=== PATIENT | male | born 1960 | race Two or more races ===

== ENCOUNTER 2024-10-19 22:31 | Emergency (ER) | payer MEDICARE, SELFPAY ==
[2024-10-19 22:34] VITALS: BMI 31.9
[2024-10-19 22:58] VITALS: BP 146/78; PULSE 68; RESP 18; TEMP 36.9; O2SAT 99
[2024-10-19] MEDS: DEXAMETHASONE SOD PHOS INJ 10 MG/ML VIAL PO (23:16)
--- NOTE | 2024-10-20 00:50 | PD.EDALLER ---
ED Allergic Reaction RME/HPI General Chief complaint: Allergic Reaction Stated complaint: FACIAL SWELLING Time Seen by Provider: 10/19/24 23:11 Arrival date/time: 10/19/24 22:31 64M with history of HTN presents to ED with 1 day of facial swelling. Patient denies new foods, meds, and hygiene products, as well as rash or itching. Patient does take lisinopril. Patent also denies SOB and throat swelling. Limitations: no limitations Related Data Home Medications ?Medication ?Instructions ?Recorded ?Confirmed pantoprazole 40 mg tablet,delayed 40 mg PO QDAY 06/13/19 10/24/19 release Previous Rx's ?Medication ?Instructions ?Recorded docusate sodium 100 mg capsule 100 mg PO QDAY #30 caps 10/26/19 hydrocodone 10 mg-acetaminophen 1 tab PO Q6HR PRN MODERATE PAIN 10/26/19 325 mg tablet 4-6 #40 tabs rivaroxaban 10 mg tablet (Xarelto) 10 mg PO Q24H #12 tabs 10/26/19 prednisone 50 mg tablet 50 mg PO QDAY 5 days #5 tabs 10/20/24 Allergies Allergy/AdvReac Type Severity Reaction Status Date / Time No Known Allergies Allergy Verified 10/19/24 22:33 Review of Systems Review of Systems Systems Reviewed: All systems reviewed, normal except as documented Constitutional Constitutional: Reports system reviewed and no additional complaints, except as documented, Denies fever(s) and Denies headache(s) ENT Ears, Nose, Mouth, and Throat: Denies disequilibrium and Denies headache(s) Cardiovascular Cardiovascular: Reports system reviewed and no additional complaints, except as documented, Denies chest pain and Denies dyspnea Respiratory Respiratory: Reports system reviewed and no additional complaints, except as documented, Denies cough and Denies dyspnea Gastrointestinal Gastrointestinal: Reports system reviewed and no additional complaints, except as documented, Denies abdominal pain, Denies nausea and Denies vomiting Integumentary/Breasts Skin/Breast: Reports as per HPI and Reports skin swelling Neurologic Neurologic: Reports system reviewed and no additional complaints, except as documented, Denies confusion, Denies disequilibrium and Denies headache(s) Psychiatric Psychiatric: Denies confusion Past Medical History Past Medical History NEUROLOGIC: Negative Neurological Disorders or Seizures CARDIAC: Positive Cardiac Disorders and Hypertension (no meds); Negative Congestive Heart Failure RESPIRATORY: Negative Chronic Obstructive Pulmonary Disease (COPD), Pulmonary Fibrosis, Tuberculosis, Pulmonary Embolism or Sleep Apnea GASTROINTESTINAL: Positive Gastrointestinal Disorders, Ulcer and Gastroesophageal Reflux Disease; Negative Hepatitis GENITOURINARY: Negative Genitourinary Disorders or Renal Disease REPRODUCTIVE: Negative Testicular Cancer MUSCULOSKELETAL: Positive Musculoskeletal Disorders and Arthritis ENDOCRINE: Negative Endocrine Disorders, Diabetes Mellitus Type 1 or Diabetes Mellitus Type 2 HEMATOLOGIC: Negative Blood Disorders OTHER HISTORY: Positive Chicken Pox (child), Measles (child) and Mumps (child); Negative Hospitalization (may 2019), Autoimmune Disease, Falls, Blood Transfusions, Blood Transfusion Reaction, Anesthesia Reactions, Organ Transplant, Chemotherapy, Radiation Therapy, Hyperbaric Therapy, MRSA, Cancer or Testicular Cancer Family History FAMILY HISTORY: Negative Family Psychiatric Problems, Family Respiratory Disorders, Family Cardiac Disorders, Family Gastrointestinal Problems, Family Cancer, Family Surgery or Family Anesthesia Reaction Surgical History SURGICAL: Negative Cardiac Surgery, Open Heart Surgery, Coronary Artery Bypass Graft, Valve Replacement, Vascular Surgery, Coronary Stent, Cardiac Catheterization, Pacemaker, Angiogram, Auto Implanted Cardiovert Defib, Carotid Endarterectomy, Endocrine Surgery, Thyroidectomy, Ear Surgery, Tympanostomy Tube, Nephrectomy, Transurethral Resection, Joint Replacement, Neurologic Surgery, Brain Shunt, Mastectomy, Lumpectomy, Hysterectomy, Tubal Ligation, Section, Vasectomy or Organ Transplant Social History SMOKING STATUS: Never smoker ED Exam General Limitations: Present no limitations General appearance: Present alert and in no apparent distress Head Head exam: Present atraumatic Eye Eye exam: Present normal appearance, PERRL and EOMI ENT ENT exam: Present normal exam, normal oropharynx and mucous membranes moist Neck Neck exam: Present normal inspection, full ROM and trachea midline Chest Chest inspection: Present normal inspection and symmetric chest wall rise Respiratory Respiratory exam: Present normal lung sounds bilaterally Cardiovascular Cardiovascular exam: Present regular rate, normal rhythm and normal heart sounds Abdominal Exam Abdominal exam: Present soft and normal bowel sounds Extremities Exam Extremities exam: Present normal inspection and full ROM Back Exam Back exam: Present normal inspection and full ROM Neurological Exam Neurological exam: Present alert, oriented X3 and CN II-XII intact Psychiatric Psychiatric exam: Present normal affect and normal mood Skin Skin exam: Present warm, dry, intact and normal color Course Quality Measures none Orders Category Date Time Status Dexamethasone Inj [Decadron Inj] Med 10/19/24 23:12 Discontinued 10 mg PO X1 ONE Vital Signs Vital signs: Vital Signs Temperature 98.5 F 10/19/24 22:58 Pulse Rate 68 10/19/24 22:58 Respiratory Rate 18 10/19/24 22:58 Blood Pressure 146/78 H 10/19/24 22:58 Pulse Oximetry (%) 99 10/19/24 22:58 Oxygen Delivery Method Room Air 10/19/24 22:58 O2 at 99% on RA and WNLs Allergic Reaction MDM Narrative MDM Narrative:: 64M with history of HTN presents to ED with 1 day of facial swelling. Patient denies new foods, meds, and hygiene products, as well as rash or itching. Patient does take lisinopril. Patent also denies SOB and throat swelling. Physical exam reveals facial swelling, more around lower face than upper/eye area, but no rash. ENT and lungs clear. Patient is afebrile, calm, and alert. Noticeable improvement with steroids, suggesting more allergic reaction etiology rather than DEEPA-inhibitor angioedema, which does not respond to antihistamines. Patient data External records reviewed:: [facility] previous records Clinical information provided by:: patient Social determinants that could affect healthcare access:: none Patient has the following chronic illnesses:: HTN How is presenting disease/condition affected by chronic disease/condition?: exacerbated by Evaluation data The following diagnostics were reviewed and interpreted by me:: other (specify) (none) Lab and/or radiology exams considered but not ordered:: not ordered Interpretation Summary: n/a Medications / Prescriptions Medications or Prescriptions considered but not ordered:: ordered Medication administrations:: Medication Administration History Discontinued Medications Dexamethasone Sodium Phosphate (Dexamethasone Sod Phos Inj 10 Mg/Ml Vial) 10 mg PO X1 ONE Stop: 10/19/24 23:13 Last Admin: 10/19/24 23:16 Dose: 10 mg Documented By: OA above Consultations Consultation(s) initiated? (list below): No Diagnosis Differential Diagnosis allergic reaction: anaphylaxis, allergic reaction, angioedema, contact dermatitis, adverse reaction to drug, viral enanthem and urticaria Most likely diagnosis given after review of the tests above:: allergic reaction Admission Indicated Admission indicated?: not indicated Admission Request Was there a request for admission?: No Disposition Plan Disposition Plan: Discharge Discharge Attestation Discharge Attestation: The patient and all family members were given an opportunity to ask questions and understood the discharge instructions. Discharge instructions specifically effects, indications for sooner follow up or return to the emergency department, and the expected course of current diagnosis. Patient condition: Stable Discharge Plan Plan Patient Disposition: HOME (Self Care) Disposition Comment: Stable Prescriptions/Referrals Prescriptions/Med Rec: New prednisone 50 mg tablet 50 mg PO QDAY 5 Days Qty: 5 0RF No Action pantoprazole 40 mg Tablet,Delayed Release (Dr/Ec) 40 mg PO QDAY hydrocodone-acetaminophen 10-325 mg Tablet 1 tab PO Q6HR MDD 6 PRN (Reason: MODERATE PAIN 4-6) Qty: 40 0RF docusate sodium 100 mg Capsule 100 mg PO QDAY Qty: 30 0RF Xarelto 10 mg Tablet 10 mg PO Q24H Qty: 12 0RF Problem List Clinical Impression: Allergic reaction Patient/Caregiver Discharge Instructions Additional Instructions: Please follow-up with PCP within 24-48 hours and return immediately if symptoms worsen. Take OTC antihistamine as needed until symptoms resolve. Finish entire steroid course. Print Language: Surinamese Stand Alone Forms: Patient Portal Info Letter DEREK/ZEFERINO Supervising Physician DEREK/ZEFERINO Supervising Physician: Dr. Nieto
[2024-10-20 01:31] VITALS: RESP 18
== END 2024-10-20 01:33 | disposition home or self-care (01) ==
LOC: SERX 10-20 01:27
PROVIDERS: Emergency Provider Emergency Medicine; PCP Physician Assistant
DX: T78.40XA Allergy, unspecified, initial encounter (principal); I10 Essential (primary) hypertension; Z79.899 Other long term (current) drug therapy; X58.XXXA Exposure to other specified factors, initial encounter
CPT/HCPCS: 99282; J1100